=== PATIENT | male | born 1935 | race Caucasian/White ===

== ENCOUNTER 2017-05-03 07:29 | Day surgery (SDC) | payer MEDICARE ==
[~2017-05-03] VITALS: Ht 170.2 cm; Wt 54.0 kg
[2017-05-03 08:03] LABS: HEMOGLOBIN 14.2 g/dL (14.1-18.0); LYMPH # 1.9 K/mm3 (0.7-4.5)
[2017-05-03 14:31] VITALS: BP 127/66
--- NOTE | 2017-05-04 11:02 | RADIOLOGY REPORT PS360 ---
CARDIAC CATHETERIZATION DATE OF CATHETERIZATION:05/04/2017 10:55 AM PROCEDURES: 1. Left heart catheterization 2. Left ventriculogram 3. Selective coronary angiogram INDICATION FOR TEST: 1. Progressive angina pectoris 2. High pretest likelihood for coronary artery disease Informed consent was obtained prior to the procedure. COMPLICATIONS: None ESTIMATED BLOOD LOSS: Less than 10 ml. TECHNIQUE: One percent lidocaine was used to anesthetize the right anterior aspect of the right wrist. The right radial artery was accessed via the Seldinger technique and a 6 [place] hydrophilic sheath was placed in the right radial artery. An arterial cocktail using heparin nitroglycerin and verapamil was administered. A dexterity catheter was used to perform left heart catheterization left ventriculogram and selective coronary angiography. At the end of the procedure the sheath was removed good hemostasis was achieved using TR band in patient was transferred to the postop holding area in stable condition ANGIOGRAPHIC RESULTS: 1. The left main artery normal 2. The left anterior descending artery proximally has a 20% nonflow limiting stenosis with mild 20 and 30% mid vessel stenoses. The first diagonal artery is a large vessel and has an ostial 50-60% stenosis. This is a 2.5 mm vessel 3. The circumflex artery is a nondominant vessel and has mild 20 and 30% nonflow limiting stenoses 4. The right coronary artery is a dominant vessel and has proximal 20% stenoses followed by concentric 40% stenosis followed by mid vessel mostly eccentric 50-60% stenosis followed by additional 40 and 50% mid vessel stenoses. Distally there is a 40% eccentric stenosis 5. The GUARDADO ventriculogram reveals normal 65% 6. The left ventricular end-diastolic pressure 10 mmHg IMPRESSION: 1. Coronary artery disease as described above 2. Normal ejection fraction 3. Normal left ventricular end-diastolic pressure PLAN: 1. Medical management for coronary artery disease 2. Maximize antianginal's 3. Risk factor modification 4. LDL less than 55
== END 2017-05-03 14:27 | disposition home or self-care (01) ==
LOC: CATHLAB 07:29
PROVIDERS: Internal Medicine
PROC: B2111ZZ Fluoroscopy of Multiple Coronary Arteries using Low Osmolar Contrast (ICD-10-PCS; 2017-05-03)
PROC: B2151ZZ Fluoroscopy of Left Heart using Low Osmolar Contrast (ICD-10-PCS; 2017-05-03)
PROC: 4A023N7 Measurement of Cardiac Sampling and Pressure, Left Heart, Percutaneous Approach (ICD-10-PCS; principal; 2017-05-03 12:15)
DX: I25.119 Atherosclerotic heart disease of native coronary artery with unspecified angina pectoris (principal); J44.9 Chronic obstructive pulmonary disease, unspecified; G30.9 Alzheimer's disease, unspecified; I73.9 Peripheral vascular disease, unspecified; Z72.0 Tobacco use
CPT/HCPCS: C1725; C1769; J1644; Q9967